=== PATIENT | female | born 1980 | race Caucasian/White ===

== ENCOUNTER 2017-06-13 14:24 | Emergency (ER) | payer MEDICAID ==
[~2017-06-13] VITALS: Ht 177.8 cm; Wt 91.9 kg
[2017-06-13 14:28] VITALS: BP 137/77
== END 2017-06-13 16:39 | disposition home or self-care (01) ==
LOC: ED 16:30
DX: J02.8 Acute pharyngitis due to other specified organisms (principal); J00 Acute nasopharyngitis [common cold]
CPT/HCPCS: 99281

== ENCOUNTER 2017-07-05 19:28 | Emergency (ER) | payer MEDICAID ==
[~2017-07-05] VITALS: Ht 167.6 cm; Wt 91.0 kg
[2017-07-05] MEDS ORDERED: ONDANSETRON 2MG/ML, 2ML IVPush ONE (20:00)
[2017-07-05] MEDS ORDERED: SODIUM CHLORIDE 0.9% 1,000ML IVBOLUS ONE (20:00)
[2017-07-05] MEDS ORDERED: HYDROmorphone 1 MG/ML, 1ML IVPush PRN (20:00)
[2017-07-05] MEDS ORDERED: SODIUM CHLORIDE FLUSH 10ML SYR IVF ONE (20:00)
[2017-07-05 20:01] LABS: HEMATOCRIT 42.6 % (34.6-47.8); HEMOGLOBIN 14.4 g/dL (11.7-16.4); WHITE BLOOD COUNT 9.8 x10^3/uL (3.4-10)
[2017-07-05] MEDS ORDERED: HYDROmorphone 1 MG/ML, 1ML ONE (20:05)
[2017-07-05] MEDS ORDERED: ONDANSETRON 2MG/ML, 2ML ONE (20:06)
[2017-07-05 20:13] LABS: ASPARTATE AMINO TRANSFERASE 22 U/L (15-37); BLOOD UREA NITROGEN 10 mg/dL (7-18)
[2017-07-05 20:56] VITALS: BP 130/67
[2017-07-05] MEDS ORDERED: ONDANSETRON ODT 4 MG ONE (21:30)
[2017-07-05] MEDS ORDERED: ONDANSETRON ODT 4 MG PO ONE (21:30)
== END 2017-07-05 21:36 | disposition home or self-care (01) ==
LOC: ED 20:56
DX: N80.3 Endometriosis of pelvic peritoneum (principal); R10.32 Left lower quadrant pain; R10.31 Right lower quadrant pain; R10.30 Lower abdominal pain, unspecified; E03.9 Hypothyroidism, unspecified; Z90.49 Acquired absence of other specified parts of digestive tract
CPT/HCPCS: 36415; 80053; 81003; 83690; 85025; 96361; 96374; 96375; 99284; J1170; J2405; J7030; Q0162

== ENCOUNTER 2017-08-27 13:08 | Emergency (ER) | payer MEDICAID ==
[~2017-08-27] VITALS: Ht 167.6 cm; Wt 91.1 kg
[2017-08-27 13:17] VITALS: BP 135/83
[2017-08-27] MEDS ORDERED: SODIUM CHLORIDE FLUSH 10ML SYR IVF ONE (13:30)
[2017-08-27] MEDS ORDERED: ONDANSETRON 2MG/ML, 2ML IVPush ONE (13:30)
[2017-08-27] MEDS ORDERED: SODIUM CHLORIDE 0.9% 1,000ML IVBOLUS ONE (13:30)
[2017-08-27 14:20] LABS: HEMATOCRIT 41.6 % (34.6-47.8); HEMOGLOBIN 14.3 g/dL (11.7-16.4)
[2017-08-27 14:33] LABS: ASPARTATE AMINO TRANSFERASE 22 U/L (15-37); BLOOD UREA NITROGEN 8 mg/dL (7-18)
[2017-08-27] MEDS ORDERED: ONDANSETRON ODT 4 MG ONE (15:39)
[2017-08-27] MEDS ORDERED: CEFTRIAXONE 1,000 MG ONE (15:39)
[2017-08-27] MEDS ORDERED: CEFTRIAXONE 1,000 MG IM ONE (16:00)
[2017-08-27] MEDS ORDERED: ONDANSETRON ODT 4 MG PO ONE (16:00)
== END 2017-08-27 16:05 | disposition home or self-care (01) ==
LOC: ED 15:56
DX: N30.00 Acute cystitis without hematuria (principal)
CPT/HCPCS: 36415; 80053; 81001; 83690; 84703; 85025; 87086; 96372; 99284; J0696; Q0162

== ENCOUNTER 2017-11-17 12:58 | Emergency (ER) | payer MEDICAID, OTHER ==
[~2017-11-17] VITALS: Ht 167.6 cm; Wt 90.9 kg
[2017-11-17 12:59] VITALS: BP 134/84
== END 2017-11-17 15:15 | disposition home or self-care (01) ==
LOC: ED 15:00
DX: N80.9 Endometriosis, unspecified (principal); G89.29 Other chronic pain; F17.200 Nicotine dependence, unspecified, uncomplicated
CPT/HCPCS: 99283

== ENCOUNTER 2018-03-30 09:23 | Emergency (ER) | payer MEDICAID ==
[~2018-03-30] VITALS: Ht 165.1 cm; Wt 87.7 kg
[2018-03-30 09:28] VITALS: BP 144/85
== END 2018-03-30 11:19 | disposition left against medical advice (07) ==
LOC: ED 11:13
DX: R10.9 Unspecified abdominal pain (principal); R11.0 Nausea; Z53.21 Procedure and treatment not carried out due to patient leaving prior to being seen by health care provider